=== PATIENT | female | born 1995 | race African-American/Black ===

== ENCOUNTER 2019-04-09 07:58 | Emergency (ER) | payer OTHER, SELFPAY ==
[2019-04-09 08:03] VITALS: BP 138/71; PULSE 87; RESP 16; TEMP 37.2; O2SAT 99; BMI 26.5
[2019-04-09 08:22] LABS: Pregnancy Test Urine Positive (Negative)
--- NOTE | 2019-04-09 08:29 | ED_ITS ---
HPI - General Chief complaint: OB/Uterine Contractions Stated complaint: 5 weeks preg/sharp pain in belly round to back Time Seen by Provider: 04/09/19 08:28 Source: patient Mode of arrival: Ambulatory Limitations: no limitations History of Present Illness HPI Narrative: This is a 23-year-old female comes to the emergency with complaint of abdominal pain started last night. She states some sort of across the abdomen sort of mid abdomen and radiating around to the back on both sides. Patient states that was quite sharp but has since resolved. She states it felt sort of like a cramping feeling like if he would take a laxative. Patient has not any fevers, she has had some mild nausea with her but none currently. No vomiting. No issues with bowel movements, no constipation. No urinary symptoms. patient states this is her 1st . Her last menstrual period was 03/04. She states that she was told by dates she should be about 5 weeks. She has not had an ultrasound. She has not seen OB but is [facility] [employer] Date of Last Menstrual Period: 03/04/19 Patient : Yes (5w1d) Expected Date of Delivery: 12/08/18 Review of Systems Review of Systems ROS Unobtainable: All systems reviewed & are unremarkable except as noted in HPI and below PMFSH - Past Medical History Medical history: Reports no medical history Surgical history: Reports no surgical history AUDITOR APPRAISER history: Reports No AUDITOR APPRAISER History Date of Last Menstrual Period: 03/04/19 Patient : Yes (5w1d) Expected Date of Delivery: 12/08/18 Exam Narrative Exam Narrative: GENERAL: Alert and oriented x three, well-nourished, well- appearing female in mild distress. HEENT: Head normocephalic, atraumatic, EOMI, pupils reactive, face symmetric, moist mucous membranes NECK: Supple, full range of motion CARDIOVASCULAR: Regular rate and rhythm without murmurs, rubs or gallops. RESPIRATORY: Breath sounds equal bilaterally, no wheezes rales or rhonchi. ABDOMEN: Soft, nontender. Normoactive bowel sounds all 4 quadrants. No guarding or rebound, rigidity, no mass. unable to palpate uterus. : No CVA tenderness EXTREMITIES: Normal range of motion, no clubbing or edema. Neurovascularly intact NEUROLOGICAL: Cranial nerves II through XII grossly intact. Moving all extremities SKIN: Warm, dry, no petechiae, no rashes or lesions. Initial Vital Signs Initial Vital Signs: Vital Signs Temperature 98.9 F 04/09/19 08:03 Pulse Rate 87 04/09/19 08:03 Respiratory Rate 16 04/09/19 08:03 Blood Pressure 138/71 04/09/19 08:03 Pulse Oximetry 99 04/09/19 08:03 Course Orders Ordered: ED Orders 04/09/19 09:20 ABO RH Type Stat Complete Blood Count AUTO DIFF Stat Vital Signs Vital signs: Vital Signs - 8 hr 04/09/19 10:17 Pulse Rate 77 Respiratory Rate 16 Blood Pressure 120/78 Pulse Oximetry 97 MDM - OB/Uterine Contractions Lab Data Attestation: I reviewed the patient's lab results. Result diagrams: 04/09/19 09:20 04/09/19 08:50 Labs: Lab Results 04/09/19 04/09/19 04/09/19 Range/Units 08:07 08:12 08:50 WBC (4.5-11.0) X10^3/uL RBC (4.0-5.2) X10^6/uL Hgb (12.0-16.0) g/dL Hct (36-46) % MCV (80-100) fL MCH (26-34) PG MCHC (30-36) % RDW (11.6-14.8) % Plt Count (150-400) X10^3/uL Neut % (Auto) (50-75) % Lymph % (Auto) (25-40) % [place] % (Auto) (3-14) % Eos % (Auto) (2-4) % Baso % (Auto) (0-2) % Neut # (Auto) (9352-2506) /uL Lymph # (Auto) (9061-8494) /uL [place] # (Auto) (0-900) /uL Eos # (Auto) (0-450) /uL Baso # (Auto) (0-100) /uL Sodium 136 L (137-145) mmol/L Potassium 4.5 (3.4-5.1) mmol/L Chloride 103 (98-107) mmol/L Carbon Dioxide 25 (22-32) mmol/L BUN 9 (7-17) mg/dL Creatinine 0.60 (0.52-1.04) mg/dL Estimated GFR > 60.0 (>60) mL/min BUN/Creatinine Ratio 15.0 (6-22) Glucose 91 (70-100) mg/dL Calcium 10.5 H (8.4-10.2) mg/dL Total Bilirubin 0.6 (0.2-1.3) mg/dL AST 26 (14-36) IU/L ALT 15 (<35) IU/L Alkaline Phosphatase 47 (38-126) U/L Total Protein 8.1 (6.3-8.2) g/dL Albumin 4.6 (3.5-5.0) g/dL Globulin 3.5 (1.7-4.1) g/dL Albumin/Globulin Ratio 1.3 (1.0-2.8) HCG, Quant 6127.9 mIU/mL Urine Color Yellow Urine Appearance Clear Urine pH 7.5 (4.5-8.0) Ur Specific [place] 1.010 (1.000-1.035) Urine Protein Negative (Negative) Urine Glucose (UA) Negative (Negative) g/dL Urine Ketones Negative (NEGATIVE) Urine Occult Blood Negative (Negative) Urine Nitrate Negative (Negative) Urine Bilirubin Negative (NEGATIVE) Urine Urobilinogen 0.2 (0.2) E.U./dL Ur Leukocyte Esterase 1+ H (NEGATIVE) Urine RBC None seen (0-5/HPF) Urine WBC 1-5/hpf (0-5/HPF) Ur Squamous Epith Cells 1-5 /hpf (0-5/HPF) Amorphous Sediment 1+ Urine Bacteria Few (2-10) H (None) Ur Culture Indicated? Specimen cultured Urine Test Positive H (Negative) Blood Type 04/09/19 04/09/19 Range/Units 09:20 09:20 WBC 5.2 (4.5-11.0) X10^3/uL RBC 4.60 (4.0-5.2) X10^6/uL Hgb 13.6 (12.0-16.0) g/dL Hct 39.2 (36-46) % MCV 85.3 (80-100) fL MCH 29.7 (26-34) PG MCHC 34.8 (30-36) % RDW 13.8 (11.6-14.8) % Plt Count 270 (150-400) X10^3/uL Neut % (Auto) 63.6 (50-75) % Lymph % (Auto) 24.8 L (25-40) % [place] % (Auto) 10.6 (3-14) % Eos % (Auto) 0.3 L (2-4) % Baso % (Auto) 0.7 (0-2) % Neut # (Auto) 3300 (1770-1236) /uL Lymph # (Auto) 1300 (5689-8709) /uL [place] # (Auto) 600 (0-900) /uL Eos # (Auto) 0 (0-450) /uL Baso # (Auto) 0 (0-100) /uL Sodium (137-145) mmol/L Potassium (3.4-5.1) mmol/L Chloride (98-107) mmol/L Carbon Dioxide (22-32) mmol/L BUN (7-17) mg/dL Creatinine (0.52-1.04) mg/dL Estimated GFR (>60) mL/min BUN/Creatinine Ratio (6-22) Glucose (70-100) mg/dL Calcium (8.4-10.2) mg/dL Total Bilirubin (0.2-1.3) mg/dL AST (14-36) IU/L ALT (<35) IU/L Alkaline Phosphatase (38-126) U/L Total Protein (6.3-8.2) g/dL Albumin (3.5-5.0) g/dL Globulin (1.7-4.1) g/dL Albumin/Globulin Ratio (1.0-2.8) HCG, Quant mIU/mL Urine Color Urine Appearance Urine pH (4.5-8.0) Ur Specific [place] (1.000-1.035) Urine Protein (Negative) Urine Glucose (UA) (Negative) g/dL Urine Ketones (NEGATIVE) Urine Occult Blood (Negative) Urine Nitrate (Negative) Urine Bilirubin (NEGATIVE) Urine Urobilinogen (0.2) E.U./dL Ur Leukocyte Esterase (NEGATIVE) Urine RBC (0-5/HPF) Urine WBC (0-5/HPF) Ur Squamous Epith Cells (0-5/HPF) Amorphous Sediment Urine Bacteria (None) Ur Culture Indicated? Urine Test (Negative) Blood Type O Positive Imaging Data OB US <14 weeks: Radiologist's impression: [place] [id number] [place] [id number] XRay Report Signed Patient: Sara Mejia [facility]#: [id number] : 2Acct:[id number] Age/Sex: 55 / FDate of Service: 04/09/19 Loc: ED Accession Number: [id number] Procedure: XR chest 1V Ordering Provider: Mercedes Chacon D.O. PROCEDURE: XR CHEST 1V INDICATIONS: dizziness/lightheadedness TECHNIQUE: One view of the chest was acquired. COMPARISON: [facility], , CHEST 2 VIEW, 04/12/2014, 13:43. FINDINGS: Surgical changes and devices: None. Lungs and pleura: Minimal increased vascularity. Mediastinum: Mediastinal contours appear normal. Heart size is normal. Bones and chest wall: No suspicious bony lesions. Overlying soft tissues appear unremarkable. IMPRESSION: Minimal increased vascularity. Dictated by: Mary Delacruz M.D. on 04/09/2019 at 8:12 Approved by: Mary Delacruz M.D. on 04/09/2019 at 8:12 [facility] Narrative Medical decision making narrative: Patient is quite early, plan for CBC, hCG and Rh status. Ultrasound although she is 5 weeks dependent on her HCG level may not be able to visualize a but is potential for ectopic although her pain is a little bit more superior than I would expect. Patient has gestational sac measuring consistent with 5 weeks and 3 days which is consistent with patient's dates. No pole was identified at this time. Based on age this is potentially normal. HCG is in the 6000 range. CBC shows no acute findings, CMP shows a calcium at 10.5 with a sodium of 136, RH positive with no bleeding noted. Discharge Plan Departure Patient Disposition: Home Clinical Impression: Abdominal pain affecting Discharge Date/Time: 04/09/19 10:17 Instructions: DI for Abdominal Pain -- Early Activity Restrictions/Additional Instructions: Follow-up at your OB appointment or in the next week. Whichever is first. Your HCG level is 6127 today. Continue taking vitamins daily. Return to the emergency department for fevers greater 100.4 F, rapidly worsening pain, persistent vomiting, passing out, new chest pain or shortness of breath, new vaginal bleeding or other new or concerning symptoms.
--- NOTE | 2019-04-09 08:34 | DI.US.S_ITS ---
PROCEDURE: US OB <= 14 WEEKS FETUS INDICATIONS: 5-6 WEEKS BY DATES. ABDOMINAL PAIN, INTERMITTENT OUTSIDE/PRIOR DATING DATA: Last menstrual period (LMP): 02/28/2019. LMP-based estimated date of delivery (TOM): 12/05/2019. First dating scan (date and location): 04/09/2019. Estimated date of delivery (TOM) from first dating scan: 12/07/2019. TECHNIQUE: Real-time scanning was performed of the fetus and maternal pelvic organs, with image documentation. Endovaginal scanning was not performed per patient request. COMPARISON: None. FINDINGS: Embryo: Intrauterine gestational sac measuring 7 mm corresponding to gestational age of approximately 5 weeks 3/7 days. No pole identified. Measurement variability in dating: +/- 4 weeks by LMP, +/- 7 days by mean sac diameter (use before 6 weeks gestation if crown-rump length not able to be measured), +/- 5 days by crown-rump length (up to 8 weeks 6 days gestation), +/- 7 days by crown-rump length (up to 13 weeks 6 days gestation). Maternal organs: Ovaries are within normal limits. Probable left corpus luteum measuring 2 x 2 x 2 cm. No uterine fibroids seen. No free fluid. IMPRESSION: 1. Intrauterine gestational sac measuring 7 mm corresponding to approximately 5 weeks 3/7 days. 2. No pole is identified at this time. Recommend followup ultrasound for more accurate dating. Dictated by: Alexis Heath M.D. on 04/09/2019 at 9:22 Approved by: Alexis Heath M.D. on 04/09/2019 at 9:27
[2019-04-09 09:12] LABS: Alanine Aminotransferase 15 IU/L (<35); Albumin 4.6 g/dL (3.5-5.0); Albumin Globulin Ratio 1.3 (1.0-2.8); Alkaline Phosphatase 47 U/L (38-126); Aspartate Aminotransferase 26 IU/L (14-36); Bilirubin Total 0.6 mg/dL (0.2-1.3); Blood Urea Nitrogen 9 mg/dL (7-17); Calcium 10.5 mg/dL (8.4-10.2); Carbon Dioxide 25 mmol/L (22-32); Chloride 103 mmol/L (98-107); Estimated Glomerular Filt Rate > 60.0 mL/min (>60); Globulin 3.5 g/dL (1.7-4.1); Glucose 91 mg/dL (70-100); HEMOLYSIS 50 (0-50); Potassium 4.5 mmol/L (3.4-5.1); Sodium 136 mmol/L (137-145); Total Protein 8.1 g/dL (6.3-8.2)
[2019-04-09 09:29] LABS: HCG Quantitative /Beta subunit 6127.9 mIU/mL
[2019-04-09 09:31] LABS: Add Manual Diff / Slide Review NO; Basophils Absolute Auto 0 /uL (0-100); Basophils Percent Auto 0.7 % (0-2); Eosinophils Absolute Auto 0 /uL (0-450); Eosinophils Percent Auto 0.3 % (2-4); Hematocrit 39.2 % (36-46); Hemoglobin 13.6 g/dL (12.0-16.0); Lymphocytes Absolute Auto 1300 /uL (1100-4500); Lymphocytes Percent Auto 24.8 % (25-40); Mean Corpuscular HGB Conc 34.8 % (30-36); Mean Corpuscular Hemoglobin 29.7 PG (26-34); Mean Corpuscular Volume 85.3 fL (80-100); Monocytes Absolute Auto 600 /uL (0-900); Monocytes Percent Auto 10.6 % (3-14); Neutrophils Absolute Auto 3300 /uL (1500-7000); Neutrophils Percent Auto 63.6 % (50-75); Platelet Count 270 X10^3/uL (150-400); Red Cell Distribution Width 13.8 % (11.6-14.8); White Blood Cell Count 5.2 X10^3/uL (4.5-11.0)
[2019-04-09 09:54] LABS: RBC Urine None Seen (0-5/HPF)
[2019-04-09 09:56] LABS: Appearance Urine UA CLEAR; Bilirubin Urine UA NEGATIVE (NEGATIVE); Color Urine UA YELLOW; Glucose Urine UA NEGATIVE (Negative); Ketones Urine UA NEGATIVE (NEGATIVE); Leukocyte Esterase Urine UA 1+ (NEGATIVE); Nitrite Urine UA NEGATIVE (Negative); Occult Blood Urine UA NEGATIVE (Negative); Protein Urine UA NEGATIVE (Negative); Urobilinogen Urine UA 0.2 E.U./dL (0.2); pH Urine UA 7.5 (4.5-8.0)
[2019-04-09 10:03] LABS: Amorphous Sediment Urine 1+; Bacteria Urine Few (2-10); Culture Indicated Urine Specimen Cultured; Squamous Epithelial Cell Urine 1-5 /HPF (0-5/HPF); WBC Urine 1-5/HPF (0-5/HPF)
[2019-04-09 10:17] VITALS: BP 120/78; PULSE 77; RESP 16; O2SAT 97
== END 2019-04-09 10:17 | disposition home or self-care (01) ==
PROVIDERS: Emergency Provider Emergency Medicine
DX: O26.891 Other specified pregnancy related conditions, first trimester (principal); R10.9 Unspecified abdominal pain; Z3A.01 Less than 8 weeks gestation of pregnancy
CPT/HCPCS: 36415; 76801; 80053; 81001; 81025; 84702; 85025; 86900; 86901; 87077; 87086; 99282; 99284

== ENCOUNTER 2019-05-01 17:05 | Emergency (ER) | payer OTHER, SELFPAY ==
[2019-05-01 17:21] VITALS: BP 126/70; PULSE 103; RESP 16; TEMP 36.9; O2SAT 99; BMI 25.0
--- NOTE | 2019-05-01 17:25 | DI.US.S_ITS ---
PROCEDURE: US OB <= 14 WEEKS FETUS INDICATIONS: SPOTTING OUTSIDE/PRIOR DATING DATA: Last menstrual period (LMP): 02/28/19. LMP-based estimated date of delivery (TOM): 12/05/19. First dating scan (date and location): 04/09/19, [facility]. Estimated date of delivery (TOM) from first dating scan: 12/07/19. TECHNIQUE: Real-time scanning was performed of the fetus and maternal pelvic organs, with image documentation. Endovaginal scanning was also performed to better visualize the fetus and maternal ovaries. COMPARISON: [facility], , OB <= 14 WEEKS FETUS, 04/09/2019, 8:55. FINDINGS: Embryo: Living early first trimester intrauterine with crown-rump length and heart beat. [place]-rump length measures 17 mm, 8 weeks one day. heart rate is 171 beats per minute. A yolk sac is seen. There is no micaela-gestational hemorrhage. Measurement variability in dating: +/- 4 weeks by LMP, +/- 7 days by mean sac diameter (use before 6 weeks gestation if crown-rump length not able to be measured), +/- 5 days by crown-rump length (up to 8 weeks 6 days gestation), +/- 7 days by crown-rump length (up to 13 weeks 6 days gestation). Maternal organs: Ovaries are not identified. IMPRESSION: Living early first trimester intrauterine with crown-rump length and heart beat. Dictated by: Paul Omer M.D. on 05/01/2019 at 19:04 Approved by: Paul Omer M.D. on 05/01/2019 at 19:08
[2019-05-01 17:30] LABS: Pregnancy Test Urine Positive (Negative)
[2019-05-01 17:33] LABS: Appearance Urine UA CLEAR; Bilirubin Urine UA NEGATIVE (NEGATIVE); Color Urine UA YELLOW; Glucose Urine UA NEGATIVE (Negative); Ketones Urine UA NEGATIVE (NEGATIVE); Leukocyte Esterase Urine UA 1+ (NEGATIVE); Nitrite Urine UA NEGATIVE (Negative); Occult Blood Urine UA NEGATIVE (Negative); Protein Urine UA NEGATIVE (Negative); Specific Gravity Urine UA <=1.005 (1.000-1.035); Urobilinogen Urine UA 0.2 E.U./dL (0.2); pH Urine UA 6.5 (4.5-8.0)
--- NOTE | 2019-05-01 17:38 | ED_ITS ---
HPI - <Debbi Thomas DO - Last Filed: 05/04/19 07:28> General Chief complaint: OB/Uterine Contractions Stated complaint: thinks UTI, 8wks preg, spotting Time Seen by Provider: 05/01/19 17:17 Source: patient Mode of arrival: Ambulatory Limitations: no limitations History of Present Illness HPI Narrative: Patient is a 23-year-old female about 8 weeks presenting with vaginal spotting. She says it is a small amount dark brown just in her panty liner. She has no abdominal cramping. It has been ongoing for a couple of weeks, it is not any worse today but got worried and wanted to be evaluated. She has a 1st appointment with stress engineer next week. She previously was seen evaluated here at 5 weeks for abdominal pain and had an ultrasound. She has record of being O positive MD Complaint: vaginal bleeding Onset (ago): week(s) Patient : Yes Review of Systems <Debbi Thomas DO - Last Filed: 05/04/19 07:28> Review of Systems Narrative: GENERAL: Denies chills, fatigue, malaise, fever, sweats, travel HEENT: Denies sinus pain, ear pain, sore throat, difficulty swallowing, neck pain RESPIRATORY: Denies dyspnea, cough, wheezing, hemoptysis, sputum. CARDIOVASCULAR: Denies chest pain, palpitations, orthopnea, edema GASTROINTESTINAL: Denies nausea, vomiting, abdominal pain, diarrhea, constipation, melena. LEARNING CENTER COORDINATOR: See HPI : Denies dysuria, frequency, incontinence, hematuria, urinary retention, flank pain. MUSCULOSKELETAL: Denies weakness, joint pain, or bony pain SKIN: No rash, no erythema, no pruritus NEUROLOGIC: Denies weakness, dizziness, headache, numbness, change in speech, confusion PSYCHIATRIC: No concerning psychosocial issues. 12 point review of systems is negative except for those stated above and HPI PMFSH - <Debbi Thomas DO - Last Filed: 05/04/19 07:28> Past Medical History Medical history: Reports no medical history Surgical history: Reports no surgical history C++ QUANT DEVELOPER history: Reports No C++ QUANT DEVELOPER History Patient : Yes Exam <Debbi Thomas DO - Last Filed: 05/04/19 07:28> Initial Vital Signs Initial Vital Signs: Vital Signs Temperature 98.4 F 05/01/19 17:21 Pulse Rate 103 H 05/01/19 17:21 Respiratory Rate 16 05/01/19 17:21 Blood Pressure 126/70 05/01/19 17:21 Pulse Oximetry 99 05/01/19 17:21 GENERAL: Well-appearing, well-nourished and in no acute distress. HEENT: Head atraumatic,EOMI, pupils reactive, face symmetric, moist mucous membranes CARDIOVASCULAR: Regular rate and rhythm without murmurs, rubs or gallops. RESPIRATORY: Breath sounds equal bilaterally, no wheezes rales or rhonchi. ABDOMEN: Soft, nontender. Normoactive bowel sounds all 4 quadrants. No guarding or rebound. EXTREMITIES: Normal range of motion, no clubbing or edema. Neurovascularly intact NEUROLOGICAL: Alert and oriented x4.Normal gait and speech. Cranial nerves II through XII grossly intact. SKIN: Warm, dry, no laceration, no petechiae, no rashes or lesions. <Lucian Sanchez DO - Last Filed: 05/01/19 19:22> Initial Vital Signs Initial Vital Signs: Vital Signs Temperature 98.4 F 05/01/19 17:21 Pulse Rate 103 H 05/01/19 17:21 Respiratory Rate 16 05/01/19 17:21 Blood Pressure 126/70 05/01/19 17:21 Pulse Oximetry 99 05/01/19 17:21 Course <Debbi Thomas DO - Last Filed: 05/04/19 07:28> Orders Ordered: ED Orders 05/01/19 17:20 Test Urine Stat Urinalysis and Microscopic Stat Urine Culture Stat 05/01/19 17:25 US OB <= 14 weeks fetus Stat 05/01/19 18:00 Complete Blood Count AUTO DIFF Stat Comprehensive Metabolic Panel Stat HCG Quantitative Stat Vital Signs Vital signs: Vital Signs - 8 hr 05/01/19 17:21 05/01/19 19:13 Temperature 98.4 F Pulse Rate 103 H 74 Respiratory Rate 16 16 Blood Pressure 126/70 Blood Pressure [Left Arm] 102/55 L Pulse Oximetry 99 100 <Lucian Sanchez DO - Last Filed: 05/01/19 19:22> Orders Ordered: ED Orders 05/01/19 17:20 Test Urine Stat Urinalysis and Microscopic Stat Urine Culture Stat 05/01/19 17:25 US OB <= 14 weeks fetus Stat 05/01/19 18:00 Complete Blood Count AUTO DIFF Stat Comprehensive Metabolic Panel Stat HCG Quantitative Stat Vital Signs Vital signs: Vital Signs - 8 hr 05/01/19 17:21 05/01/19 19:13 Temperature 98.4 F Pulse Rate 103 H 74 Respiratory Rate 16 16 Blood Pressure 126/70 Blood Pressure [Left Arm] 102/55 L Pulse Oximetry 99 100 MDM - OB/Uterine Contractions <Debbi Thomas, DO - Last Filed: 05/04/19 07:28> Lab Data Result diagrams: 05/01/19 18:00 05/01/19 18:00 Labs: Lab Results 05/01/19 05/01/19 05/01/19 Range/Units 17:20 17:20 18:00 WBC 6.4 (4.5-11.0) X10^3/uL RBC 4.34 (4.0-5.2) X10^6/uL Hgb 13.1 (12.0-16.0) g/dL Hct 38.0 (36-46) % MCV 87.6 (80-100) fL MCH 30.2 (26-34) PG MCHC 34.4 (30-36) % RDW 13.9 (11.6-14.8) % Plt Count 279 (150-400) X10^3/uL Neut % (Auto) 62.6 (50-75) % Lymph % (Auto) 26.6 (25-40) % Johnston % (Auto) 9.5 (3-14) % Eos % (Auto) 0.6 L (2-4) % Baso % (Auto) 0.7 (0-2) % Neut # (Auto) 4000 (7934-9006) /uL Lymph # (Auto) 1700 (8668-2848) /uL Johnston # (Auto) 600 (0-900) /uL Eos # (Auto) 0 (0-450) /uL Baso # (Auto) 0 (0-100) /uL Sodium (137-145) mmol/L Potassium (3.4-5.1) mmol/L Chloride (98-107) mmol/L Carbon Dioxide (22-32) mmol/L BUN (7-17) mg/dL Creatinine (0.52-1.04) mg/dL Estimated GFR (>60) mL/min BUN/Creatinine Ratio (6-22) Glucose (70-100) mg/dL Calcium (8.4-10.2) mg/dL Total Bilirubin (0.2-1.3) mg/dL AST (14-36) IU/L ALT (<35) IU/L Alkaline Phosphatase (38-126) U/L Total Protein (6.3-8.2) g/dL Albumin (3.5-5.0) g/dL Globulin (1.7-4.1) g/dL Albumin/Globulin Ratio (1.0-2.8) HCG, Quant mIU/mL Urine Color Yellow Urine Appearance Clear Urine pH 6.5 (4.5-8.0) Ur Specific [place] <=1.005 (1.000-1.035) Urine Protein Negative (Negative) Urine Glucose (UA) Negative (Negative) g/dL Urine Ketones Negative (NEGATIVE) Urine Occult Blood Negative (Negative) Urine Nitrate Negative (Negative) Urine Bilirubin Negative (NEGATIVE) Urine Urobilinogen 0.2 (0.2) E.U./dL Ur Leukocyte Esterase 1+ H (NEGATIVE) Urine RBC 0-1/hpf (0-5/HPF) Urine WBC 1-5/hpf (0-5/HPF) Ur Squamous Epith Cells 5-10 /hpf H (0-5/HPF) Urine Bacteria Occasional (0-1) (None) Ur Culture Indicated? Cult not indicated Urine Test Positive H (Negative) 05/01/19 Range/Units 18:00 WBC (4.5-11.0) X10^3/uL RBC (4.0-5.2) X10^6/uL Hgb (12.0-16.0) g/dL Hct (36-46) % MCV (80-100) fL MCH (26-34) PG MCHC (30-36) % RDW (11.6-14.8) % Plt Count (150-400) X10^3/uL Neut % (Auto) (50-75) % Lymph % (Auto) (25-40) % [place] % (Auto) (3-14) % Eos % (Auto) (2-4) % Baso % (Auto) (0-2) % Neut # (Auto) (3948-1471) /uL Lymph # (Auto) (7059-5113) /uL Johnston # (Auto) (0-900) /uL Eos # (Auto) (0-450) /uL Baso # (Auto) (0-100) /uL Sodium 136 L (137-145) mmol/L Potassium 4.2 (3.4-5.1) mmol/L Chloride 102 (98-107) mmol/L Carbon Dioxide 25 (22-32) mmol/L BUN 9 (7-17) mg/dL Creatinine 0.60 (0.52-1.04) mg/dL Estimated GFR > 60.0 (>60) mL/min BUN/Creatinine Ratio 15.0 (6-22) Glucose 89 (70-100) mg/dL Calcium 9.4 (8.4-10.2) mg/dL Total Bilirubin 0.5 (0.2-1.3) mg/dL AST 36 (14-36) IU/L ALT 34 (<35) IU/L Alkaline Phosphatase 34 L (38-126) U/L Total Protein 8.4 H (6.3-8.2) g/dL Albumin 4.5 (3.5-5.0) g/dL Globulin 3.9 (1.7-4.1) g/dL Albumin/Globulin Ratio 1.2 (1.0-2.8) HCG, Quant 747156 mIU/mL Urine Color Urine Appearance Urine pH (4.5-8.0) Ur Specific [place] (1.000-1.035) Urine Protein (Negative) Urine Glucose (UA) (Negative) g/dL Urine Ketones (NEGATIVE) Urine Occult Blood (Negative) Urine Nitrate (Negative) Urine Bilirubin (NEGATIVE) Urine Urobilinogen (0.2) E.U./dL Ur Leukocyte Esterase (NEGATIVE) Urine RBC (0-5/HPF) Urine WBC (0-5/HPF) Ur Squamous Epith Cells (0-5/HPF) Urine Bacteria (None) Ur Culture Indicated? Urine Test (Negative) MDM Narrative Medical decision making narrative: Patient signed out to Dr. Sanchez, his labs and ultrasound pending <Lucian Sanchez, DO - Last Filed: 05/01/19 19:22> Lab Data Labs: Lab Results 05/01/19 05/01/19 05/01/19 Range/Units 17:20 17:20 18:00 WBC 6.4 (4.5-11.0) X10^3/uL RBC 4.34 (4.0-5.2) X10^6/uL Hgb 13.1 (12.0-16.0) g/dL Hct 38.0 (36-46) % MCV 87.6 (80-100) fL MCH 30.2 (26-34) PG MCHC 34.4 (30-36) % RDW 13.9 (11.6-14.8) % Plt Count 279 (150-400) X10^3/uL Neut % (Auto) 62.6 (50-75) % Lymph % (Auto) 26.6 (25-40) % Johnston % (Auto) 9.5 (3-14) % Eos % (Auto) 0.6 L (2-4) % Baso % (Auto) 0.7 (0-2) % Neut # (Auto) 4000 (2151-8802) /uL Lymph # (Auto) 1700 (7109-3101) /uL Johnston # (Auto) 600 (0-900) /uL Eos # (Auto) 0 (0-450) /uL Baso # (Auto) 0 (0-100) /uL Sodium (137-145) mmol/L Potassium (3.4-5.1) mmol/L Chloride (98-107) mmol/L Carbon Dioxide (22-32) mmol/L BUN (7-17) mg/dL Creatinine (0.52-1.04) mg/dL Estimated GFR (>60) mL/min BUN/Creatinine Ratio (6-22) Glucose (70-100) mg/dL Calcium (8.4-10.2) mg/dL Total Bilirubin (0.2-1.3) mg/dL AST (14-36) IU/L ALT (<35) IU/L Alkaline Phosphatase (38-126) U/L Total Protein (6.3-8.2) g/dL Albumin (3.5-5.0) g/dL Globulin (1.7-4.1) g/dL Albumin/Globulin Ratio (1.0-2.8) HCG, Quant mIU/mL Urine Color Yellow Urine Appearance Clear Urine pH 6.5 (4.5-8.0) Ur Specific [place] <=1.005 (1.000-1.035) Urine Protein Negative (Negative) Urine Glucose (UA) Negative (Negative) g/dL Urine Ketones Negative (NEGATIVE) Urine Occult Blood Negative (Negative) Urine Nitrate Negative (Negative) Urine Bilirubin Negative (NEGATIVE) Urine Urobilinogen 0.2 (0.2) E.U./dL Ur Leukocyte Esterase 1+ H (NEGATIVE) Urine RBC 0-1/hpf (0-5/HPF) Urine WBC 1-5/hpf (0-5/HPF) Ur Squamous Epith Cells 5-10 /hpf H (0-5/HPF) Urine Bacteria Occasional (0-1) (None) Ur Culture Indicated? Cult not indicated Urine Test Positive H (Negative) 05/01/19 Range/Units 18:00 WBC (4.5-11.0) X10^3/uL RBC (4.0-5.2) X10^6/uL Hgb (12.0-16.0) g/dL Hct (36-46) % MCV (80-100) fL MCH (26-34) PG MCHC (30-36) % RDW (11.6-14.8) % Plt Count (150-400) X10^3/uL Neut % (Auto) (50-75) % Lymph % (Auto) (25-40) % Johnston % (Auto) (3-14) % Eos % (Auto) (2-4) % Baso % (Auto) (0-2) % Neut # (Auto) (6874-3764) /uL Lymph # (Auto) (9586-6176) /uL Johnston # (Auto) (0-900) /uL Eos # (Auto) (0-450) /uL Baso # (Auto) (0-100) /uL Sodium 136 L (137-145) mmol/L Potassium 4.2 (3.4-5.1) mmol/L Chloride 102 (98-107) mmol/L Carbon Dioxide 25 (22-32) mmol/L BUN 9 (7-17) mg/dL Creatinine 0.60 (0.52-1.04) mg/dL Estimated GFR > 60.0 (>60) mL/min BUN/Creatinine Ratio 15.0 (6-22) Glucose 89 (70-100) mg/dL Calcium 9.4 (8.4-10.2) mg/dL Total Bilirubin 0.5 (0.2-1.3) mg/dL AST 36 (14-36) IU/L ALT 34 (<35) IU/L Alkaline Phosphatase 34 L (38-126) U/L Total Protein 8.4 H (6.3-8.2) g/dL Albumin 4.5 (3.5-5.0) g/dL Globulin 3.9 (1.7-4.1) g/dL Albumin/Globulin Ratio 1.2 (1.0-2.8) HCG, Quant 020655 mIU/mL Urine Color Urine Appearance Urine pH (4.5-8.0) Ur Specific [place] (1.000-1.035) Urine Protein (Negative) Urine Glucose (UA) (Negative) g/dL Urine Ketones (NEGATIVE) Urine Occult Blood (Negative) Urine Nitrate (Negative) Urine Bilirubin (NEGATIVE) Urine Urobilinogen (0.2) E.U./dL Ur Leukocyte Esterase (NEGATIVE) Urine RBC (0-5/HPF) Urine WBC (0-5/HPF) Ur Squamous Epith Cells (0-5/HPF) Urine Bacteria (None) Ur Culture Indicated? Urine Test (Negative) Imaging Data US - abdomen: Radiologist's impression: [place] [address] Ultrasound Report Signed Patient: Tabatha Bundy FMR#: [id number] : 1995Acct:[id number] Age/Sex: 23 / FDate of Service: 05/01/19 Loc: ED Accession Number: [id number] Procedure: US OB <= 14 weeks fetus Ordering Provider: Debbi Thomas D.O. PROCEDURE: US OB <= 14 WEEKS FETUS INDICATIONS: SPOTTING OUTSIDE/PRIOR DATING DATA: Last menstrual period (LMP): 02/28/19. LMP-based estimated date of delivery (TOM): 12/05/19. First dating scan (date and location): 04/09/19, [facility]. Estimated date of delivery (TOM) from first dating scan: 12/07/19. TECHNIQUE: Real-time scanning was performed of the fetus and maternal pelvic organs, with image documentation. Endovaginal scanning was also performed to better visualize the fetus and maternal ovaries. COMPARISON: [facility], , US OB <= 14 WEEKS FETUS, 04/09/2019, 8:55. FINDINGS: Embryo: Living early first trimester intrauterine with crown-rump length and heart beat. [place]-rump length measures 17 mm, 8 weeks one day. heart rate is 171 beats per minute. A yolk sac is seen. There is no micaela-gestational hemorrhage. Measurement variability in dating: +/- 4 weeks by LMP, +/- 7 days by mean sac diameter (use before 6 weeks gestation if crown-rump length not able to be measured), +/- 5 days by crown-rump length (up to 8 weeks 6 days gestation), +/- 7 days by crown-rump length (up to 13 weeks 6 days gestation). Maternal organs: Ovaries are not identified. IMPRESSION: Living early first trimester intrauterine with crown-rump length and heart beat. Dictated by: Paul Omer M.D. on 05/01/2019 at 19:04 Approved by: Paul Omer M.D. on 05/01/2019 at 19:08 [facility] Narrative Medical decision making narrative: Dr sanchez: Received turned over, reviewed patient's history and physical. Patient is Rh positive. Urinalysis has bacteria but no other signs of infection. Her physical exam symptoms are not very consistent with a UTI. Urine culture was ordered. Informed her that we would call her for any positive results. Patient has a intrauterine . At appropriate dates. Has a follow-up with her OB next week. She was given return precautions and follow-up instructions. She expressed understanding agreement plan Discharge Plan Departure Patient Disposition: Home Clinical Impression: Vaginal bleeding affecting early Discharge Date/Time: 05/01/19 19:30 Instructions: DI for Vaginal Bleeding During Activity Restrictions/Additional Instructions: Keep all of your scheduled medical appointments. We will call you if the urine culture that was started today ends up being positive. Return to the emergency department for any new or worsening symptoms
[2019-05-01 17:39] LABS: Bacteria Urine Occasional (0-1); Culture Indicated Urine Cult Not Indicated; RBC Urine 0-1/HPF (0-5/HPF); Squamous Epithelial Cell Urine 5-10 /HPF (0-5/HPF); WBC Urine 1-5/HPF (0-5/HPF)
[2019-05-01 18:10] LABS: Add Manual Diff / Slide Review NO; Basophils Absolute Auto 0 /uL (0-100); Basophils Percent Auto 0.7 % (0-2); Eosinophils Absolute Auto 0 /uL (0-450); Eosinophils Percent Auto 0.6 % (2-4); Hemoglobin 13.1 g/dL (12.0-16.0); Lymphocytes Absolute Auto 1700 /uL (1100-4500); Lymphocytes Percent Auto 26.6 % (25-40); Mean Corpuscular HGB Conc 34.4 % (30-36); Mean Corpuscular Hemoglobin 30.2 PG (26-34); Mean Corpuscular Volume 87.6 fL (80-100); Monocytes Absolute Auto 600 /uL (0-900); Monocytes Percent Auto 9.5 % (3-14); Neutrophils Absolute Auto 4000 /uL (1500-7000); Neutrophils Percent Auto 62.6 % (50-75); Platelet Count 279 X10^3/uL (150-400); Red Blood Cell Count 4.34 X10^6/uL (4.0-5.2); Red Cell Distribution Width 13.9 % (11.6-14.8); White Blood Cell Count 6.4 X10^3/uL (4.5-11.0)
[2019-05-01 18:22] LABS: Alanine Aminotransferase 34 IU/L (<35); Albumin 4.5 g/dL (3.5-5.0); Albumin Globulin Ratio 1.2 (1.0-2.8); Alkaline Phosphatase 34 U/L (38-126); Aspartate Aminotransferase 36 IU/L (14-36); Bilirubin Total 0.5 mg/dL (0.2-1.3); Blood Urea Nitrogen 9 mg/dL (7-17); Calcium 9.4 mg/dL (8.4-10.2); Carbon Dioxide 25 mmol/L (22-32); Chloride 102 mmol/L (98-107); Estimated Glomerular Filt Rate > 60.0 mL/min (>60); Globulin 3.9 g/dL (1.7-4.1); Glucose 89 mg/dL (70-100); Potassium 4.2 mmol/L (3.4-5.1); Sodium 136 mmol/L (137-145); Total Protein 8.4 g/dL (6.3-8.2)
[2019-05-01 19:03] LABS: HCG Quantitative /Beta subunit 128800 mIU/mL; HEMOLYSIS 81 (0-50)
[2019-05-01 19:13] VITALS: BP 102/55; PULSE 74; RESP 16; O2SAT 100
== END 2019-05-01 19:30 | disposition home or self-care (01) ==
PROVIDERS: Emergency Medicine; Emergency Provider Emergency Medicine
DX: O20.9 Hemorrhage in early pregnancy, unspecified (principal); Z3A.08 8 weeks gestation of pregnancy
CPT/HCPCS: 36415; 76801; 76817; 80053; 81001; 81025; 84702; 85025; 87086; 99283; 99284

== ENCOUNTER → 2019-05-25 14:44 | Outpatient (CLI) | payer OTHER, SELFPAY ==
[2019-05-25 19:58] LABS: HCG Quantitative /Beta subunit 15236 mIU/mL
== END ==
PROVIDERS: PCP Family Medicine; Visit Provider Family Medicine
DX: O03.9 Complete or unspecified spontaneous abortion without complication (principal)
CPT/HCPCS: 36415; 84702

== ENCOUNTER → 2019-05-28 13:19 | Outpatient (CLI) | payer OTHER, SELFPAY ==
[2019-05-28 14:47] LABS: HCG Quantitative /Beta subunit 10090 mIU/mL
== END ==
PROVIDERS: PCP Family Medicine; Visit Provider Family Medicine
DX: O03.9 Complete or unspecified spontaneous abortion without complication (principal)
CPT/HCPCS: 36415; 84702

== ENCOUNTER → 2019-06-16 08:04 | Outpatient (CLI) | payer OTHER, SELFPAY ==
--- NOTE | 2019-06-16 08:05 | DI.US.S_ITS ---
PROCEDURE: US PELVIC COMPLETE INDICATIONS: RECENT MISCARRIAGE TECHNIQUE: Real-time scanning was performed of the pelvic organs, with image documentation. Additional endovaginal scanning was necessary due to incomplete visualization of the adnexal and endometrial structures by transabdominal scanning. COMPARISON: None. FINDINGS: Transabdominal scanning: Limited scanning through the kidneys shows no hydronephrosis. No pathologic free abdominal or pelvic fluid. Endovaginal scanning: Uterus: Uterus is normal in size at 3.8 x 5.4 x 6.6 cm, anteverted. The endometrium measures 2.1 mm in combined thickness. A slight amount of fluid is present within the endometrial canal and no solid debris that would suggest retained products of conception is seen. Ovaries: Numerous bilaterally appear normal. IMPRESSION: No sign of retained products of conception, minimal fluid present within the endometrial canal, no ovarian abnormality seen. Dictated by: Arash Davila M.D. on 06/16/2019 at 10:52 Approved by: Arash Davila M.D. on 06/16/2019 at 10:54
== END ==
PROVIDERS: PCP Family Medicine; Visit Provider Family Medicine
DX: O03.9 Complete or unspecified spontaneous abortion without complication (principal)
CPT/HCPCS: 76830; 76856